=== PATIENT | male | born 1970 | race Caucasian/White ===

== ENCOUNTER 2018-08-11 22:10 | Emergency (ER) | payer SELFPAY ==
[~2018-08-11] VITALS: Ht 167.6 cm; Wt 90.0 kg
[2018-08-11 22:17] VITALS: Ht 167.6 cm; Wt 90.0 kg
[2018-08-11 23:51] LABS: BASOPHIL % 0.5 % (0-2); PLATELET COUNT 341 x10^3mcL (130-400); RED CELL DISTRIBUTION WIDTH 12.7 % (11.5-14.5)
[2018-08-11 23:59] LABS: CALCIUM 9.4 mg/dL (8.5-10.1); CARBON DIOXIDE 28.4 mmol/L (21-32); CHLORIDE SERUM 103 mmol/L (98-107); CREATININE SERUM 0.9 mg/dL (0.7-1.3); GFR1 > 60 mL/min; GLUCOSE SERUM 106 mg/dL (74-106); POTASSIUM SERUM 4.1 mmol/L (3.5-5.1); SODIUM SERUM 136 mmol/L (136-145)
[2018-08-12 00:03] LABS: ALKALINE PHOSPHATASE 79 U/L (46-116); ALT/SGPT 27 U/L (16-63); AST/SGOT 17 U/L (15-37); BILIRUBIN TOTAL 0.4 mg/dL (0.20-1.00); LIPASE 235 IU/L (73-393)
[2018-08-12 01:37] VITALS: BP 139/99
== END 2018-08-12 01:37 | disposition home or self-care (01) ==
LOC: ED 22:10
PROVIDERS: Emergency Medicine
DX: K29.70 Gastritis, unspecified, without bleeding (principal); R03.0 Elevated blood-pressure reading, without diagnosis of hypertension; Z90.89 Acquired absence of other organs
CPT/HCPCS: 36415

== ENCOUNTER 2018-08-21 19:03 | Emergency (ER) | payer SELFPAY ==
[~2018-08-21] VITALS: Ht 175.3 cm; Wt 92.5 kg
[2018-08-21 19:10] VITALS: Ht 175.3 cm; Wt 92.5 kg
[2018-08-21 22:10] VITALS: BP 133/74
== END 2018-08-21 22:10 | disposition home or self-care (01) ==
LOC: ED 19:03
DX: K29.70 Gastritis, unspecified, without bleeding (principal)
CPT/HCPCS: Q0092